=== PATIENT | male | born 1955 | race Caucasian/White ===

== ENCOUNTER → 2016-11-25 | Outpatient (CLI) | payer BC ==
[2016-11-25 18:25] LABS: HEMATOCRIT 43.5 % (42-52); MEAN CELL VOLUME 88.1 fL (80-100); MEAN CORPUSCULAR HGB CONC 36.3 g/dl (32-36); MEAN PLATELET VOLUME 12.9 fL (7.4-10.4); PLATELET COUNT 196 K/uL (130-400); RED BLOOD COUNT 4.94 M/uL (4.7-6.1); WHITE BLOOD COUNT 19.61 K/uL (4.8-10.8)
[2016-11-25 18:34] LABS: ALT/SGPT 22 U/L (12-78); AMYLASE 53 U/L (25-115); AST/SGOT 20 U/L (15-37); BLOOD UREA NITROGEN 23 mg/dl (7-18); BUN/CREATININE RATIO 23.6 (10-20); CALCIUM 10.6 mg/dl (8.5-10.1); CARBON DIOXIDE 23 mmol/L (21-32); CHLORIDE 103 mmol/L (98-107); CREATININE 0.96 mg/dl (0.60-1.40); GLUCOSE 145 mg/dl (70-99); POTASSIUM 4.7 mmol/L (3.5-5.1); SODIUM 137 mmol/L (136-145)
[2016-11-25 18:37] LABS: ALB/GLOB RATIO 1.3 (0.9-2); ALKALINE PHOSPHATASE 82 U/L (45-117)
[2016-11-25 19:11] LABS: BASO % 0.1 %; BASO ABS # 0.01 K/uL (0-0.2); COMPLETE YES; IG% 0.2 %; LYMPH % 5.7 %; LYMPH ABS # 1.11 K/uL (1.2-3.4)
== END | disposition home or self-care (01) ==
LOC: C.LABSPEC 10:53
PROVIDERS: ATTEND Family Medicine
DX: R10.84 Generalized abdominal pain (principal)

== ENCOUNTER 2021-07-04 12:30 | Observation (INO) ==
[2021-07-04 13:17] LABS: Basophils # (auto) 0.04 K/uL (0-0.2); Basophils % (auto) 0.5 %; Eosinophils # (auto) 0.04 K/uL (0-0.5); Eosinophils % (auto) 0.5 %; Hematocrit (blood only) 38.3 % (42-52); Hemoglobin 13.4 g/dL (14.0-18.0); Immature Granulocytes # (auto) 0.01 K/uL (0.00-0.02); Immature Granulocytes % (auto) 0.1 %; Lymphocytes # (auto) 1.19 K/uL (1.2-3.4); Lymphocytes % (auto) 16.1 %; Mean Corpuscular Hemoglobin 31.2 pg (25-34); Mean Corpuscular Volume 89.1 fL (80-100); Monocytes # (auto) 0.41 K/uL (0.11-0.59); Monocytes % (auto) 5.5 %; Neutrophils # (auto) 5.71 K/uL (1.4-6.5); Neutrophils % (auto) 77.3 %; Platelet Count 190 K/uL (130-400); RDW Coefficient of Variation 13.1 % (11.5-14.5); RDW Standard Deviation 42.5 fL (36.4-46.3)
[2021-07-04 13:34] LABS: BUN Creatinine Ratio 9.6 (10-20); Calcium 9.6 mg/dl (8.5-10.1); Creatinine Clr Calc Pharmacy 73.7 ml/min; Est GFR (African American) 93.4 ml/min; Est GFR (Non-African American) 80.6 ml/min; Potassium 3.8 mmol/L (3.5-5.1)
[2021-07-04 13:36] LABS: Albumin Globulin Ratio 1.3 (0.9-2); Bilirubin,Total 0.8 mg/dl (0.2-1); Globulin 3.2 gm/dl (2.5-4.0); Total Protein 7.2 gm/dl (6.4-8.2)
--- NOTE | 2021-07-04 17:01 | Emergency Department Note ---
Impression & Plan Difficulty swallowing, SOB (shortness of breath), Weight loss ED Provider Note NAME: PIPE STANTON AGE: 66 SEX: M : 1955 ARRIVES VIA: Walk-In INFORMANT: [Patient][family] ED PROVIDER(S): [Jose Ram MD] CHIEF COMPLAINT: Illness HISTORY OF PRESENT ILLNESS: The patient is a 66-year-old male who states that for at least 1 week, he has noticed some discomfort in the area of his esophagus near the sternal notch when he swallows. He cannot swallow larger objects including larger pills, he gags. He has lost a bit of weight. He also feels short of breath as if he cannot inhale deeply like he could before. There has been no fever, no increased cough. His thinks his voice is more raspy. The patient went to an outside hospital and had his heart tested. Everything checked out okay. He has an appointment to see GI on August 06 but, was not sure he could wait that long as he is having more and more difficulty each day. The pain to swallow is mild in severity, it is more of a discomfort and feeling as if something may be caught in the esophagus than real pain. He feels sometimes like here is a rope tightening on his neck. The patient does have reflux and is noticing more reflux lately. He takes omeprazole daily. REVIEW OF SYSTEMS: See HPI for pertinent positives and negatives. A total of ten systems were reviewed and were otherwise negative. PMHx/PSHx: See Below SOCIAL HISTORY: See Below. PHYSICAL EXAM: GENERAL: Patient is in no acute distress. HEENT: No acute trauma, normocephalic atraumatic, mucous membranes moist, no nasal congestion, no scleral icterus. NECK: No stridor, no adenopathy, no meningismus, trachea is midline. No real discomfort to move the trachea side to side. LUNGS: Clear to auscultation bilaterally but diminished bilaterally, no wheeze, no rhonchi, breath sounds equal. HEART: Without murmurs gallops or rubs, regular rate and rhythm. ABDOMEN: Soft, nontender, bowel sounds positive, no hernias, no peritonitis. EXTREMITIES: No cyanosis or edema, full range of motion of all the joints without pain or difficulty, no signs for acute trauma. NEUROLOGIC: Oriented x 3, no acute motor or sensory deficits, no focal weakness. SKIN: No rash, no jaundice, no diaphoresis. DIFFERENTIAL DIAGNOSIS: Esophageal narrowing, esophageal stricture, esophageal mass, thyroid mass, mediastinal mass, malignancy, esophagitis, cardiac ischemia, pneumonia, among others. EMERGENCY DEPARTMENT COURSE/PROCEDURES: ECG: Indication was upper chest pain. The ECG shows a sinus bradycardia with a rate of 59. There is no ST elevation, no PVCs. The QTc is 419. Continuous Cardiac Monitoring: An order was placed for continuous cardiac monitoring. The monitor shows a rate of 79 with normal sinus rhythm. MEDICAL DECISION MAKING: There is no leukocytosis. A mild anemia was noted. There was a normal platelet count. No significant electrolyte abnormality with the exception of a slightly low magnesium at 1.7. There was no kidney failure. ECG shows a sinus bradycardia, no acute ischemia. Cardiac enzyme testing x1 is not consistent with acute cardiac injury. There was no liver enzyme elevation. TSH showed the thyroid to be functioning normally. Covid testing returned negative. Chest CT did not show any mass in the mediastinum, there was no obstruction in the esophagus. The patient presents with difficulty swallowing. Work-up here is unrevealing. I discussed the case with GI. The patient is to be hospitalized for endoscopy in the [facility]. The patient is to be n.p.o. at midnight. I talked to the patient about his findings, he was in agreement with the hospital stay. I did speak with case management, the on-call hospitalist was consulted. Past Med/Surg History Medical History COPD with emphysema Surgical History H/O wrist surgery Family History Brother Heart disease Father Lung cancer, Onset Age: 82 smoker COPD (chronic obstructive pulmonary disease) Sister Breast cancer, Onset Age: 60 survived Other Cancer Emphysema, unspecified Denies family history of Tuberculosis Diabetes Allergies Lung disease Asthma Social History Smoking Status: Former smoker Tobacco Type: Cigarettes Age Started Using Tobacco: 20; Age Quit Using Tobacco: 60; packs per day: 0.75; Years Smoked: 20; Cigarettes Per Day: 15; Hx Alcohol Use: No Hx Substance Use: No Preferred Language: Bangladeshi Communication Ability: Effective Cryptologic Support Specialist Required: No Beliefs That Will Affect Care: None marital status: Current Living Situation: Spouse current occupational status: employed current occupation: [employer] Other Information That Helps Us Care for You: No Feels Safe at Home: Yes Safety Concerns: Feels Safe At This Time Assistive Devices: None Allergies Allergies Allergy/AdvReac Type Severity Reaction Status Date / Time etodolac Allergy Severe throat Verified 07/05/21 11:02 swelling meloxicam AdvReac Intermediate throat Verified 07/05/21 11:02 irritation Home Meds Home Medications Medication Instructions Recorded Confirmed cyanocobalamin (vitamin B-12) 1,000 mcg PO QAM 07/04/21 07/04/21 1,000 mcg tablet (Vitamin B-12) docusate sodium 100 mg tablet 100 mg PO QAM 07/04/21 07/04/21 multivitamin 1 tab PO QAM 07/04/21 07/04/21 omeprazole 20 mg capsule,delayed 20 mg PO QAM 07/04/21 07/04/21 release Previous Rx's Medication Instructions Recorded albuterol sulfate 90 mcg/actuation 2 puff INHALATION Q6H PRN #18 g 08/08/20 aerosol inhaler Results & Data (ED) Vital Signs Vital Signs - 24 hr 07/04/21 16:25 07/04/21 16:30 07/04/21 17:00 Pulse Rate 61 63 58 L Pulse Rate from SpO2 Sensor 62 63 60 Respiratory Rate 15 18 18 Blood Pressure 117/73 110/66 121/77 Blood Pressure Mean 87 80 91 Pulse Oximetry 99 99 100 07/04/21 17:30 07/04/21 18:00 07/04/21 18:30 Pulse Rate 61 Pulse Rate from SpO2 Sensor 70 64 61 Respiratory Rate 18 15 16 Blood Pressure 118/72 106/72 119/72 Blood Pressure Mean 87 83 87 Pulse Oximetry 100 99 98 07/04/21 19:00 07/04/21 19:40 Pulse Rate 75 67 Pulse Rate from SpO2 Sensor 72 67 Respiratory Rate 16 15 Blood Pressure 104/67 Blood Pressure Mean 79 Pulse Oximetry 99 99 Home Medications Current Medication List: was personally reviewed by me Laboratory Data Attestation: I reviewed the patient's lab results. Result diagrams: 07/05/21 08:57 07/05/21 08:57 Lab Results 07/04/21 07/04/21 07/04/21 Range/Units 13:02 13:02 17:13 WBC 7.40 (4.8-10.8) K/uL RBC 4.30 L (4.7-6.1) M/uL Hgb 13.4 L (14.0-18.0) g/dL Hct 38.3 L (42-52) % MCV 89.1 (80-100) fL MCH 31.2 (25-34) pg MCHC 35.0 (32-36) g/dL RDW Std Deviation 42.5 (36.4-46.3) fL RDW Coeff of Ted 13.1 (11.5-14.5) % Plt Count 190 (130-400) K/uL MPV 12.0 H (7.4-10.4) fL Immature Gran % (Auto) 0.1 % Neut % (Auto) 77.3 % Lymph % (Auto) 16.1 % Clay % (Auto) 5.5 % Eos % (Auto) 0.5 % Baso % (Auto) 0.5 % Neut # (Auto) 5.71 (1.4-6.5) K/uL Lymph # (Auto) 1.19 L (1.2-3.4) K/uL Clay # (Auto) 0.41 (0.11-0.59) K/uL Eos # (Auto) 0.04 (0-0.5) K/uL Baso # (Auto) 0.04 (0-0.2) K/uL Immature Gran # (Auto) 0.01 (0.00-0.02) K/uL Sodium 137 (136-145) mmol/L Potassium 3.8 (3.5-5.1) mmol/L Chloride 105 (98-107) mmol/L Carbon Dioxide 25 (21-32) mmol/L Anion Gap 7.0 (3-11) BUN 9 (7-18) mg/dl Creatinine 0.98 (0.6-1.4) mg/dl Est Cr Clr Drug Dosing 73.7 ml/min Est GFR ( Amer) 93.4 ml/min Est GFR (Non-Af Amer) 80.6 ml/min BUN/Creatinine Ratio 9.6 L (10-20) Glucose 112 H (70-99) mg/dl Calcium 9.6 (8.5-10.1) mg/dl Magnesium (1.8-2.4) mg/dl Total Bilirubin 0.8 (0.2-1) mg/dl AST 20 (15-37) U/L ALT 29 (12-78) U/L Alkaline Phosphatase 71 (45-117) U/L Troponin I < 0.015 (0-0.045) ng/ml Total Protein 7.2 (6.4-8.2) gm/dl Albumin 4.0 (3.4-5.0) gm/dl Globulin 3.2 (2.5-4.0) gm/dl Albumin/Globulin Ratio 1.3 (0.9-2) TSH 1.740 (0.300-4.500) uIu/ml COVID-19 Eval Order SARS-CoV-2 (PCR) (Negative) 07/04/21 07/04/21 07/04/21 Range/Units 17:13 18:13 18:13 WBC (4.8-10.8) K/uL RBC (4.7-6.1) M/uL Hgb (14.0-18.0) g/dL Hct (42-52) % MCV (80-100) fL MCH (25-34) pg MCHC (32-36) g/dL RDW Std Deviation (36.4-46.3) fL RDW Coeff of Ted (11.5-14.5) % Plt Count (130-400) K/uL MPV (7.4-10.4) fL Immature Gran % (Auto) % Neut % (Auto) % Lymph % (Auto) % Clay % (Auto) % Eos % (Auto) % Baso % (Auto) % Neut # (Auto) (1.4-6.5) K/uL Lymph # (Auto) (1.2-3.4) K/uL Clay # (Auto) (0.11-0.59) K/uL Eos # (Auto) (0-0.5) K/uL Baso # (Auto) (0-0.2) K/uL Immature Gran # (Auto) (0.00-0.02) K/uL Sodium (136-145) mmol/L Potassium (3.5-5.1) mmol/L Chloride (98-107) mmol/L Carbon Dioxide (21-32) mmol/L Anion Gap (3-11) BUN (7-18) mg/dl Creatinine (0.6-1.4) mg/dl Est Cr Clr Drug Dosing ml/min Est GFR ( Amer) ml/min Est GFR (Non-Af Amer) ml/min BUN/Creatinine Ratio (10-20) Glucose (70-99) mg/dl Calcium (8.5-10.1) mg/dl Magnesium 1.7 L (1.8-2.4) mg/dl Total Bilirubin (0.2-1) mg/dl AST (15-37) U/L ALT (12-78) U/L Alkaline Phosphatase (45-117) U/L Troponin I (0-0.045) ng/ml Total Protein (6.4-8.2) gm/dl Albumin (3.4-5.0) gm/dl Globulin (2.5-4.0) gm/dl Albumin/Globulin Ratio (0.9-2) TSH (0.300-4.500) uIu/ml COVID-19 Eval Order Covid19 at [facility] [place] SARS-CoV-2 (PCR) NEGATIVE (Negative) Administered Medications Pantoprazole Sodium 40 mg/ (Syringe) 10 mls @ 5 mls/min IV DAILY@1100 FRANCISCO Stop: 08/04/21 10:59 Last Admin: 07/05/21 12:53 Dose: 5 mls/min Documented by: [id number] Discontinued Medications Sodium Chloride (Nss 1000ml) 1,000 mls @ 100 mls/hr IV .Q10H FRANCISCO Stop: 07/05/21 07:41 Last Infusion: 07/05/21 08:12 Dose: 0 mls/hr Documented by: [id number] Admin: 07/04/21 22:12 Dose: 100 mls/hr Documented by: [id number] Magnesium Sulfate/Dextrose (Magnesium Sulfate / D5w) 1 gm in 100 mls @ 50 mls/hr IV Q2H FRANCISCO Stop: 07/05/21 12:29 Last Admin: 07/05/21 13:43 Dose: 50 mls/hr Documented by: [id number] Infusion: 07/05/21 13:41 Dose: 50 mls/hr Documented by: [id number] Infusion: 07/05/21 12:50 Dose: 50 mls/hr Documented by: [id number] Infusion: 07/05/21 10:41 Dose: 0 mls/hr Documented by: [id number] Admin: 07/05/21 09:31 Dose: 50 mls/hr Documented by: [id number] Ioversol (Optiray 320 100ml) 94 ml IV ONCE ONE Stop: 07/04/21 17:20 Last Admin: 07/04/21 17:19 Dose: 1 ml Documented by: [id number] Lidocaine HCl (Lidocaine 2% 2 Ml Vial/Amp(20mg/Ml)) Confirm Administered Dose 4 ml INFIL .STK-MED ONE Stop: 07/05/21 11:22 Last Admin: 07/05/21 12:54 Dose: Not Given Documented by: [id number] Propofol (Propofol Iv Emulsion 10 Mg/Ml 20 Ml Vial) Confirm Administered Dose 400 mg IV .STK-MED ONE Stop: 07/05/21 11:22 Last Admin: 07/05/21 12:54 Dose: Not Given Documented by: [id number] Imaging Data Radiologist's Impression: CHEST CT WITH CONTRAST CT DOSE: 263.26 mGy.cm HISTORY: Acute shortness of breath with dysphagia and weight loss sob, hard to swallow, wt loss TECHNIQUE: Multiaxial CT images of the chest were performed following the IV administration of 94 cc of Optiray. Oral contrast was also used to assess the esophagus. A dose lowering technique was utilized adhering to the principles of ALARA. COMPARISON: Chest CT from outside hospital 07/30/2020 (images only without report). FINDINGS: Unremarkable thyroid. No adenopathy. Heart is normal in size without pericardial effusion. Moderate coronary artery calcifications. No thoracic aortic aneurysm. Patency of the imaged great vessels. The opacified pulmonary artery appears unremarkable. Mild emphysema. Tracheobronchial secretions with bronchial wall thickening suggestive of bronchitis. Respiratory motion artifact and evaluation of the lung parenchyma. Biapical pleural-parenchymal scarring. Pleural thickening of the right lung apex measuring up to approximately 4.7 cm transversely on image 65 series 5 appears stable from the 07/30/2020 exam. Calcified granulomata with scattered noncalcified subcentimeter pulmonary nodules of the right lung apex redemonstrated. The largest noncalcified pulmonary nodule measures up to approximately 4 mm. No pneumothorax, overt pulmonary edema or lobar airspace consolidation. There is no pneumoperitoneum. Postoperative changes of the stomach. Cholecystectomy. No focal abnormality of the esophagus identified. No esophageal mass or contrast extravasation. Degenerative changes of the shoulders and spine. No acute fracture or suspicious bone lesion. Midthoracic dextroscoliosis. IMPRESSION: 1. Emphysema without acute intrathoracic abnormality. 2. No pleural effusion or airspace consolidation to suggest pneumonia. 3. Unremarkable appearance of the esophagus. 4. Unchanged pleural parenchymal scarring with 4.7 cm right apical opacity, stable from 07/30/2020 and also likely related to fibrosis. 5. Unchanged low suspicion calcified granulomata with noncalcified right upper lobe pulmonary nodules measuring up to 4 mm. Discharge Plan Visit Data Chief Complaint: Illness Stated Complaint: TROUBLE SWALLOWING ED Provider: Jose Ram Discharge Problem: Difficulty swallowing, SOB (shortness of breath), Weight loss Patient Disposition: Admitted As Inpatient Condition: Good Discharge Instructions Interventions: ED Discharge Assessment Last Done: 07/04/21 21:07
[2021-07-04] MEDS ORDERED: OPTIRAY 320 100ml IV ONE (17:19)
--- NOTE | 2021-07-04 17:42 | CT Scan Report ---
CHEST CT WITH CONTRAST CT DOSE: 263.26 mGy.cm HISTORY: Acute shortness of breath with dysphagia and weight loss sob, hard to swallow, wt loss TECHNIQUE: Multiaxial CT images of the chest were performed following the IV administration of 94 cc of Optiray. Oral contrast was also used to assess the esophagus. A dose lowering technique was utiliz ed adhering to the principles of ALARA. COMPARISON: Chest CT from outside hospital 07/30/2020 (images only without report). FINDINGS: Unremarkable thyroid. No adenopathy. Heart is normal in size without pericardial effusion. Moderate coronary artery calcifications. No thoracic aortic aneurysm. Patency of the imaged great ves sels. The opacified pulmonary artery appears unremarkable. Mild emphysema. Tracheobronchial secretions with bronchial wall thickening suggestive of bronchitis. Respiratory motion artifact and evaluation of the lung parenchyma. Biapical pleural-parenchymal scarr ing. Pleural thickening of the right lung apex measuring up to approximately 4.7 cm transversely on i mage 65 series 5 appears stable from the 07/30/2020 exam. Calcified granulomata with scattered noncalc ified subcentimeter pulmonary nodules of the right lung apex redemonstrated. The largest noncalcified pulmonary nodule measures up to approximately 4 mm. No pneumothorax, overt pulmonary edema or lobar airspace consolidation. There is no pneumoperitoneum. Postoperative changes of the stomach. Cholecystectomy. No focal abnorma lity of the esophagus identified. No esophageal mass or contrast extravasation. Degenerative changes of the shoulders and spine. No acute fracture or suspicious bone lesion. Midthoracic dextroscoliosis. IMPRESSION: 1. Emphysema without acute intrathoracic abnormality. 2. No pleural effusion or airspace consolidation to suggest pneumonia. 3. Unremarkable appearance of the esophagus. 4. Unchanged pleural parenchymal scarring with 4.7 cm right apical opacity, stable from 07/30/2020 and also likely related to fibrosis. 5. Unchanged low suspicion calcified granulomata with noncalcified right upper lobe pulmonary nodules measuring up to 4 mm. ACT 112: Negative or not required by law. Electronically signed by: Marcos Kennedy M.D. 07/04/2021 5:40 PM
[2021-07-04 17:56] LABS: Troponin I < 0.015 ng/ml (0-0.045)
--- NOTE | 2021-07-04 19:45 | History & Physical Report ---
Date of Service July 04, 2021 Assessment & Plan (1) Dysphagia: Plan: 66yo male presenting with 2 months of throat fullness, dysphagia, odynophagia and hoarseness. Patient denies melena/hematochezia/hematemesis. He does have a normochromic normocytic anemia with Hgb = 13.4, HCT equal 38.3 which is a slight decrease from prior lab values in July 2020. Work-up in the ER largely unremarkable Observation to medical floor Keep n.p.o. after midnight GI consultation appreciated. Plan for EGD in the morning Protonix 40 mg IV daily (2) COPD with emphysema: Plan: Patient denies cough, shortness of breath, wheeze Albuterol HFA as needed Plan: F/E/N -normal saline at 100 mL/h x 1 L, electrolytes within normal limits, n.p.o. after midnight ProphylaxisSCDs to bilateral lower extremities for DVT prophylaxis Codefull per discussion with patient Dispositionobservation to medical History of Present Illness Chief Complaint: difficulty swallowing Primary Care Provider: Julio Osman MD Ketan Gamez is a 66yo male with history Emphysema/COPD presenting with 2 months of throat discomfort. Patient reports his throat began feeling "weird" approximately 2 months ago - fullness, scratchy and tight. He complains of pain and difficulty with swallowing as well as the sensation of food getting stuck in the epigastric region. He sometimes experiences a bitter fluid in his mouth as well as globus sensation and hoarseness of voice. Two days ago he ate breakfast then had vomiting of undigested food approximately 15-20 minutes later as well as black liquid. He otherwise denies nausea, vomiting. No diarrhea, constipation. No melena/hematochezia or hematemesis. Patient had a partial gastrectomy performed at the age of 15 for a stomach ulcer. He states that he had approximately 90% of his stomach removed. Since then he has had intermittent heart burn over the years. He typically takes Omeprazole and TUMS PRN with relief of symptoms. He has been taking Omeprazole for the last month with no improvement in the above symptoms. Patient was seen at [facility] approximately 1 week ago and had a negative cardiac workup. He was discharged home. Allergies Allergy/AdvReac Type Severity Reaction Status Date / Time etodolac Allergy Severe throat Unverified 07/04/21 16:53 swelling meloxicam AdvReac Intermediate throat Unverified 07/04/21 16:54 irritation Home Medications Medication Instructions Recorded Confirmed Type albuterol sulfate 90 mcg/actuation 2 puff INHALATION Q6H PRN #18 g 08/08/20 07/04/21 Rx aerosol inhaler cyanocobalamin (vitamin B-12) 1,000 mcg PO QAM 07/04/21 07/04/21 History 1,000 mcg tablet (Vitamin B-12) docusate sodium 100 mg tablet 100 mg PO QAM 07/04/21 07/04/21 History multivitamin 1 tab PO QAM 07/04/21 07/04/21 History omeprazole 20 mg capsule,delayed 20 mg PO QAM 07/04/21 07/04/21 History release Past Med/Surg History Medical History (Updated 07/05/21 @ 00:13 by Irma Shea DO) COPD with emphysema Surgical History H/O wrist surgery Family History Brother Heart disease Father Lung cancer, Onset Age: 82 smoker COPD (chronic obstructive pulmonary disease) Sister Breast cancer, Onset Age: 60 survived Other Cancer Emphysema, unspecified Denies family history of Tuberculosis Diabetes Allergies Lung disease Asthma Social History Smoking Status: Former smoker Tobacco Type: Cigarettes Age Started Using Tobacco: 20; Age Quit Using Tobacco: 60; packs per day: 0.75; Years Smoked: 20; Cigarettes Per Day: 15; Hx Alcohol Use: No Hx Substance Use: No Preferred Language: Irish Communication Ability: Effective Fund Manager Required: No Beliefs That Will Affect Care: None marital status: Current Living Situation: Spouse current occupational status: employed current occupation: [employer] Other Information That Helps Us Care for You: No Feels Safe at Home: Yes Safety Concerns: Feels Safe At This Time Assistive Devices: Denture - Upper and Glasses Review of Systems Review of Systems: All systems reviewed & are unremarkable except as noted in HPI & below + Weight loss - 4-5 pounds over the last 2 months Decreased appetite Decreased PO intake Indigestion Physical Exam Physical Exam: General: patient resting comfortably, NAD, non-toxic in appearance, AA&O x 4 Skin: warm, dry, intact, no rashes or lesions HEENT: NC/AT, PERRL, EOMI, anicteric sclera, conjunctiva without injection, external ear normal to inspection and nontender, nares patent, moist mucus membranes, dentition intact, no oropharyngeal lesions, posterior pharynx with mild erythema, no exudates, neck supple, trachea midline, no LAD, no thyromegaly, no JVD Heart: +S1/S2, regular, no m/r/g Lungs: equal air entry bilaterally, no rales/rhonchi/wheezes Abd: +BS, soft, NT/ND, no masses/organomegaly/ascites, no epigastric tenderness Ext: warm, 2+ pulses in UE/LE bilaterally, no clubbing/cyanosis or edema Neuro: nonfocal, patient AA&O x 4, speech intact, no facial droop, moving all extremities on command with equal strength 5/5 Results & Data Results & Data ([facility]) Vital Signs (Past 12 Hours) Vital Signs Temp Pulse Resp BP Pulse Ox 07/04/21 18:30 61 16 119/72 98 07/04/21 18:00 15 106/72 99 07/04/21 17:30 18 118/72 100 07/04/21 17:00 58 L 18 121/77 100 07/04/21 16:30 63 18 110/66 99 07/04/21 16:25 61 15 117/73 99 07/04/21 12:32 36.8 C 79 18 115/71 100 Laboratory Results Laboratory Results WBC 7.40 K/uL (4.8-10.8) 07/04/21 13:02 RBC 4.30 M/uL (4.7-6.1) L 07/04/21 13:02 Hgb 13.4 g/dL (14.0-18.0) L 07/04/21 13:02 Hct 38.3 % (42-52) L 07/04/21 13:02 MCV 89.1 fL (80-100) 07/04/21 13:02 MCH 31.2 pg (25-34) 07/04/21 13:02 MCHC 35.0 g/dL (32-36) 07/04/21 13:02 RDW Std Deviation 42.5 fL (36.4-46.3) 07/04/21 13:02 RDW Coeff of Ted 13.1 % (11.5-14.5) 07/04/21 13:02 Plt Count 190 K/uL (130-400) 07/04/21 13:02 MPV 12.0 fL (7.4-10.4) H 07/04/21 13:02 Immature Gran % (Auto) 0.1 % 07/04/21 13:02 Neut % (Auto) 77.3 % 07/04/21 13:02 Lymph % (Auto) 16.1 % 07/04/21 13:02 [place] % (Auto) 5.5 % 07/04/21 13:02 Eos % (Auto) 0.5 % 07/04/21 13:02 Baso % (Auto) 0.5 % 07/04/21 13:02 Neut # (Auto) 5.71 K/uL (1.4-6.5) 07/04/21 13:02 Lymph # (Auto) 1.19 K/uL (1.2-3.4) L 07/04/21 13:02 [place] # (Auto) 0.41 K/uL (0.11-0.59) 07/04/21 13:02 Eos # (Auto) 0.04 K/uL (0-0.5) 07/04/21 13:02 Baso # (Auto) 0.04 K/uL (0-0.2) 07/04/21 13:02 Immature Gran # (Auto) 0.01 K/uL (0.00-0.02) 07/04/21 13:02 Sodium 137 mmol/L (136-145) 07/04/21 13:02 Potassium 3.8 mmol/L (3.5-5.1) 07/04/21 13:02 Chloride 105 mmol/L (98-107) 07/04/21 13:02 Carbon Dioxide 25 mmol/L (21-32) 07/04/21 13:02 Anion Gap 7.0 (3-11) 07/04/21 13:02 BUN 9 mg/dl (7-18) 07/04/21 13:02 Creatinine 0.98 mg/dl (0.6-1.4) 07/04/21 13:02 Est Cr Clr Drug Dosing 73.7 ml/min 07/04/21 13:02 Est GFR ( Amer) 93.4 ml/min 07/04/21 13:02 Est GFR (Non-Af Amer) 80.6 ml/min 07/04/21 13:02 BUN/Creatinine Ratio 9.6 (10-20) L 07/04/21 13:02 Glucose 112 mg/dl (70-99) H 07/04/21 13:02 Calcium 9.6 mg/dl (8.5-10.1) 07/04/21 13:02 Magnesium 1.7 mg/dl (1.8-2.4) L 07/04/21 17:13 Total Bilirubin 0.8 mg/dl (0.2-1) 07/04/21 13:02 AST 20 U/L (15-37) 07/04/21 13:02 ALT 29 U/L (12-78) 07/04/21 13:02 Alkaline Phosphatase 71 U/L (45-117) 07/04/21 13:02 Troponin I < 0.015 ng/ml (0-0.045) 07/04/21 17:13 Total Protein 7.2 gm/dl (6.4-8.2) 07/04/21 13:02 Albumin 4.0 gm/dl (3.4-5.0) 07/04/21 13:02 Globulin 3.2 gm/dl (2.5-4.0) 07/04/21 13:02 Albumin/Globulin Ratio 1.3 (0.9-2) 07/04/21 13:02 TSH 1.740 uIu/ml (0.300-4.500) 07/04/21 17:13 COVID-19 Eval Order Covid19 at [facility] 07/04/21 18:13 SARS-CoV-2 (PCR) NEGATIVE (Negative) 07/04/21 18:[address] 07/04/21 16:[address] WITH CONTRAST CT DOSE: 263.26 mGy.cm HISTORY: Acute shortness of breath with dysphagia and weight loss sob, hard to swallow, wt loss TECHNIQUE: Multiaxial CT images of the chest were performed following the IV administration of 94 cc of Optiray. Oral contrast was also used to assess the esophagus. A dose lowering technique was utilized adhering to the principles of ALARA. COMPARISON: Chest CT from outside hospital 07/30/2020 (images only without report). FINDINGS: Unremarkable thyroid. No adenopathy. Heart is normal in size without pericardial effusion. Moderate coronary artery calcifications. No thoracic aortic aneurysm. Patency of the imaged great vessels. The opacified pulmonary artery appears unremarkable. Mild emphysema. Tracheobronchial secretions with bronchial wall thickening suggestive of bronchitis. Respiratory motion artifact and evaluation of the lung parenchyma. Biapical pleural-parenchymal scarring. Pleural thickening of the right lung apex measuring up to approximately 4.7 cm transversely on image 65 series 5 appears stable from the 07/30/2020 exam. Calcified granulomata with scattered noncalcified subcentimeter pulmonary nodules of the right lung apex redemonstrated. The largest noncalcified pulmonary nodule measures up to approximately 4 mm. No pneumothorax, overt pulmonary edema or lobar airspace consolidation. There is no pneumoperitoneum. Postoperative changes of the stomach. Cholecyste ctomy. No focal abnormality of the esophagus identified. No esophageal mass or contrast extravasation. Degenerative changes of the shoulders and spine. No acute fracture or suspicious bone lesion. Midthoracic dextroscoliosis. IMPRESSION: 1. Emphysema without acute intrathoracic abnormality. 2. No pleural effusion or airspace consolidation to suggest pneumonia. 3. Unremarkable appearance of the esophagus. 4. Unchanged pleural parenchymal scarring with 4.7 cm right apical opacity, stable from 07/30/2020 and also likely related to fibrosis. 5. Unchanged low suspicion calcified granulomata with noncalcified right upper lobe pulmonary nodules measuring up to 4 mm. ACT 112: Negative or not required by law. Electronically signed by: Marcos Kennedy M.D. 07/04/2021 5:40 PM ECG Additional Comments: EKG with SB at 59bpm, normal axis, RD=335, QRS=98, OHyd=640, no acute ischemic changes Code Status & VTE Plan VTE Prophylaxis Plan VTE Prophylaxis will be ordered: Yes PG Care Time/CCT Total # of Minutes Spent Total Time Spent with Patient: Total time spent is greater than 50% in coordination of care (as documented) at patient's floor/unit and/or counseling patient: Coding Level of Care Code INT OBSERVATION CARE 50M LVL 2 Diagnoses COPD with emphysema J43.9 Dysphagia R13.10
[2021-07-04] MEDS ORDERED: SODIUM CHLORIDE 0.9% 1000ML 1,000 ML IV SCH (21:42)
[2021-07-04] MEDS ORDERED: ACETAMINOPHEN 325 MG TAB PO PRN (21:42)
[2021-07-04] MEDS ORDERED: ALBUTEROL HFA 8 GM INHALER INH PRN (21:42)
[2021-07-04] MEDS ORDERED: ONDANSETRON INJ 2 MG/ML 2 ML VIAL IV PRN (21:42)
--- NOTE | 2021-07-05 08:45 | Hospitalist Progress Note ---
Date of Service July 05, 2021 Assessment & Plan (1) Dysphagia: Plan: 66yo male presenting with 2 months of throat fullness, dysphagia, odynophagia and hoarseness. Patient denies melena/hematochezia/hematemesis. He does have a normochromic normocytic anemia with Hgb = 13.4, HCT equal 38.3 which is a slight decrease from prior lab values in July 2020. Work-up in the ER largely unremarkable Observation to medical floor Keep n.p.o. after midnight GI consultation appreciated. Plan for EGD in the morning Protonix 40 mg IV daily -awaiting UPPER ENDOSCOPY. (2) COPD with emphysema: Plan: Patient denies cough, shortness of breath, wheeze Albuterol HFA as needed -Patient also has history of COPD. D/W Dr. Rhoades, will need PFT. This will need to wait 4 weeks. Plan: F/E/N -normal saline at 100 mL/h x 1 L, electrolytes within normal limits, n.p.o. after midnight ProphylaxisSCDs to bilateral lower extremities for DVT prophylaxis Codefull per discussion with patient Dispositionobservation to medical Admission and Anticipated Discharge Date Admission Date: July 04, 2021 Subjective Patient reports having worsening dspahiga over the course of the past 2 weeks. He also reports having history of COPD and having intermmittent SOB. He is an ex smoker, follows up with Dr. Rhoades but did not complete the PFT that was ordered last year. Review of Systems Review of Systems: All systems reviewed & are unremarkable except as noted in HPI & below Physical Exam Physical Exam: General: patient resting comfortably, NAD, non-toxic in appearance, AA&O x 4 Skin: warm, dry, intact, no rashes or lesions HEENT: NC/AT, PERRL, EOMI, anicteric sclera, conjunctiva without injection, external ear normal to inspection and nontender, nares patent, moist mucus membranes, dentition intact, no oropharyngeal lesions, posterior pharynx with mild erythema, no exudates, neck supple, trachea midline, no LAD, no thyromegaly, no JVD Heart: +S1/S2, regular, no m/r/g Lungs: equal air entry bilaterally, no rales/rhonchi/wheezes Abd: +BS, soft, NT/ND, no masses/organomegaly/ascites, no epigastric tenderness Ext: warm, 2+ pulses in UE/LE bilaterally, no clubbing/cyanosis or edema Neuro: nonfocal, patient AA&O x 4, speech intact, no facial droop, moving all extremities on command with equal strength 5/5 Results & Data Results & Data ([facility]) Vital Signs (Past 12 Hours) Vital Signs Temp Pulse Pulse Resp BP BP Pulse Ox 07/05/21 07:22 36.5 C 965 H 18 116/73 99 07/04/21 22:32 36.4 C L 72 20 128/74 98 07/04/21 22:14 37.1 C 64 16 110/71 99 07/04/21 21:00 68 23 98 PG Care Time/CCT Total # of Minutes Spent Total Time Spent with Patient: Total time spent is greater than 50% in coordination of care (as documented) at patient's floor/unit and/or counseling patient: Coding Level of Care Code 98755 Subseq Obs Care Lvl 3 Diagnoses Dysphagia R13.10 COPD with emphysema J43.9 Time Spent (min) 35
--- NOTE | 2021-07-05 09:01 | Gastrointestinal Consultation ---
Date of Consultation July 05, 2021 Assessment & Plan (1) Dysphagia: -Keep NPO for EGD today -Protonix 40 mg daily for now, may change pending results of EGD Supervising Physician Co-Signing Physician Notes Proceed with EGD. risks/benefits and procedure discussed with patient, who agrees to proceed History of Present Illness Reason for Consultation: Dysphagia Attending Physician: Conor Escobar History of Present Illness Patient is a 66 yo male with a PMH of COPD who presents with "throat discomfort." He notes that this discomfort began several months ago and notes he has started to notice food getting stuck in his esophagus. He acknowledges what sounds like acid reflux, noting an acidic taste in his mouth. He notes several episodes of vomiting up food. He denies any GI bleeding. He has a history of a partial gastrectomy at age 15 due to a perforated stomach ulcer. He utilizes OTC PPI therapy and Tums as needed. Omeprazole has not helped his symptoms. No pertinent family history. He has been using NSAIDs. He has a 20 year smoking history but quit 8 years ago. Family history unremarkable for GI malignancy. CT of the chest indicated an unremarkable esophagus. Allergies Allergy/AdvReac Type Severity Reaction Status Date / Time etodolac Allergy Severe throat Unverified 07/04/21 16:53 swelling meloxicam AdvReac Intermediate throat Unverified 07/04/21 16:54 irritation Home Medications Medication Instructions Recorded Confirmed Type albuterol sulfate 90 mcg/actuation 2 puff INHALATION Q6H PRN #18 g 08/08/20 07/04/21 Rx aerosol inhaler cyanocobalamin (vitamin B-12) 1,000 mcg PO QAM 07/04/21 07/04/21 History 1,000 mcg tablet (Vitamin B-12) docusate sodium 100 mg tablet 100 mg PO QAM 07/04/21 07/04/21 History multivitamin 1 tab PO QAM 07/04/21 07/04/21 History omeprazole 20 mg capsule,delayed 20 mg PO QAM 07/04/21 07/04/21 History release Patient History Medical History (Updated 07/05/21 @ 00:13 by Irma Shea DO) COPD with emphysema Surgical History H/O wrist surgery Family History Brother Heart disease Father Lung cancer, Onset Age: 82 smoker COPD (chronic obstructive pulmonary disease) Sister Breast cancer, Onset Age: 60 survived Other Cancer Emphysema, unspecified Denies family history of Tuberculosis Diabetes Allergies Lung disease Asthma Social History Smoking Status: Former smoker Tobacco Type: Cigarettes Age Started Using Tobacco: 20; Age Quit Using Tobacco: 60; packs per day: 0.75; Years Smoked: 20; Cigarettes Per Day: 15; Hx Alcohol Use: No Hx Substance Use: No Preferred Language: Rwandan Communication Ability: Effective Electrical Contractor Required: No Beliefs That Will Affect Care: None marital status: Current Living Situation: Spouse current occupational status: employed current occupation: [employer] Other Information That Helps Us Care for You: No Feels Safe at Home: Yes Safety Concerns: Feels Safe At This Time Assistive Devices: Denture - Upper and Glasses Review of Systems Constitutional: no fever and no chills Respiratory: no cough and no dyspnea Cardiovascular: no chest pain Gastrointestinal: no coffee ground emesis, no dysphagia and no melena Integumentary: no problem reported Psychiatric: no problem reported Hematologic / Lymphatic: no unexplained weight loss Physical Exam Constitutional: WD/WN, vitals as above Neck: normal visual inspection Respiratory: normal respiratory effort Cardiovascular: RRR, no murmur, no edema Gastrointestinal (Abdomen): normal bowel sounds, soft, nontender, no hepatosplenomegaly Musculoskeletal: Head/Neck/Chest: normocephalic Psychiatric: Orientation: alert and oriented x 3 Results & Data ([facility]) Vital Signs (Past 12 Hours) Vital Signs Temp Pulse Pulse Resp BP BP Pulse Ox 07/05/21 07:22 36.5 C 965 H 18 116/73 99 07/04/21 22:32 36.4 C L 72 20 128/74 98 07/04/21 22:14 37.1 C 64 16 110/71 99 07/04/21 21:00 68 23 98 PG Care Time/CCT Total # of Minutes Spent Total Time Spent with Patient: Total time spent is greater than 50% in coordination of care (as documented) at patient's floor/unit and/or counseling patient: Coding Level of Care Code 51260 Initial Inpt Care Lvl 3 Diagnoses Dysphagia R13.10
[2021-07-05 09:21] LABS: Hematocrit (blood only) 38.8 % (42-52); Hemoglobin 13.4 g/dL (14.0-18.0); Mean Corpuscular Hemoglobin 31.2 pg (25-34); Mean Corpuscular Hgb Conc 34.5 g/dL (32-36); Mean Corpuscular Volume 90.4 fL (80-100); Mean Platelet Volume 11.7 fL (7.4-10.4); Platelet Count 183 K/uL (130-400); RDW Coefficient of Variation 13.2 % (11.5-14.5); RDW Standard Deviation 43.3 fL (36.4-46.3); Red Blood Count 4.29 M/uL (4.7-6.1); White Blood Count 6.57 K/uL (4.8-10.8)
[2021-07-05] MEDS: MAGNESIUM SULFATE / D5W 1 GM/100 ML BAG IV SCH ×2 (09:31→13:43)
[2021-07-05 09:39] LABS: BUN Creatinine Ratio 9.9 (10-20); Calcium 9.4 mg/dl (8.5-10.1); Creatinine Clr Calc Pharmacy 82.6 ml/min; Est GFR (Non-African American) 90.6 ml/min; Magnesium 2.1 mg/dl (1.8-2.4); Potassium 4.1 mmol/L (3.5-5.1)
[2021-07-05 09:40] LABS: Phosphorus 2.3 mg/dl (2.5-4.9)
[2021-07-05] MEDS ORDERED: LIDOCAINE 2% 2 ML VIAL/AMP(20MG/ML) INFIL ONE (11:21)
[2021-07-05] MEDS ORDERED: PROPOFOL IV EMULSION 10 MG/ML 20 ML VIAL IV ONE (11:21)
--- NOTE | 2021-07-05 11:28 | Anesthesiology Consultation ---
Date of Service July 05, 2021 Assessment & Plan Chart Review Chart Review: Acceptable Risk for Surgery and Patient NOT seen in Pre Admission Testing Consults Requested none ASA ASA4 Proposed Anesthesia Anesthesia Type: MAC Risk / Benefits Reviewed With: PT / POA / Parent / Guardian, Accepts Plan and Informed Consent Obtained Additional Comments: covid test negative History Surgery Operation Date: 07/05/21 16:30 Proposed Procedures p Esophagogastroduodenoscopy Dr. Craig - Chicho Craig MD Height/Weight Height: 6 ft 4 in Weight: 69 kg Allergies Allergy/AdvReac Type Severity Reaction Status Date / Time etodolac Allergy Severe throat Verified 07/05/21 11:02 swelling meloxicam AdvReac Intermediate throat Verified 07/05/21 11:02 irritation Medications Home Medications Medication Instructions Recorded Confirmed Last Taken albuterol sulfate 90 mcg/actuation 2 puff INHALATION Q6H PRN #18 g 08/08/20 07/04/21 07/04/21 aerosol inhaler cyanocobalamin (vitamin B-12) 1,000 mcg PO QAM 07/04/21 07/04/21 07/04/21 1,000 mcg tablet (Vitamin B-12) docusate sodium 100 mg tablet 100 mg PO QAM 07/04/21 07/04/21 07/04/21 multivitamin 1 tab PO QAM 07/04/21 07/04/21 06/27/21 omeprazole 20 mg capsule,delayed 20 mg PO QAM 07/04/21 07/04/21 07/04/21 release Active Medications Generic Name Dose Route Start Last Admin Trade Name Freq PRN Reason Stop Dose Admin Magnesium Sulfate/Dextrose 1 gm in 100 mls @ 50 mls/hr 07/05/21 08:30 07/05/21 10:41 Magnesium Sulfate / D5w IV 07/05/21 12:29 0 mls/hr Q2H FRANCISCO Infusion NPO Date Last Intake of Fluids: 07/04/21 Time Last Intake of Fluids: 21:30 Last Intake of Fluids Comment: in ED Date Last Intake of Solids: 07/04/21 Time Last Intake of Solids: 21:30 Last Intake of Solids Comment: sandwich in ED Past Medical History Medical History COPD with emphysema Exercise / Class Metabolic Activity III < 4 Walking/Shop/Light housework Past Family History Family History Brother Heart disease Father Lung cancer, Onset Age: 82 smoker COPD (chronic obstructive pulmonary disease) Sister Breast cancer, Onset Age: 60 survived Other Cancer Emphysema, unspecified Denies family history of Tuberculosis Diabetes Allergies Lung disease Asthma Past Surgical History Surgical History H/O wrist surgery Past Anesthesia History No Hx of Anesthesia Complications and No Family Hx of Anesthesia Complications History of PONV No Hx of PONV and No Hx of Motion Sickness Social History Smoking Status: Former smoker Smoking cigarettes per day: 15 Hx Alcohol Use: No Hx Substance Use: No Physical Exam Vital Signs Last Vital Signs Temp 37.5 C 07/05/21 10:56 Pulse 67 07/05/21 10:56 Resp 16 07/05/21 10:56 BP 116/75 07/05/21 10:56 Pulse Ox 98 07/05/21 10:56 Constitutional not cachectic ENMT Mouth: + dentition abnormality, + dentures and + edentulous Thyromental Distance: > or= 3.5 Finger Breadths Mallampati Class: II Neck normal visual inspection, trachea midline and + facial hair; neck extension not limited Respiratory normal respiratory effort Auscultation: lungs clear to auscultation bilaterally Cardiovascular Rate/Rhythm: regular rate and regular rhythm Heart Sounds: no murmur Vessels: no carotid bruit Musculoskeletal Spine: normal cervical ROM Neurologic moves all extremities Motor/Sensory: no sensory deficit Psychiatric Orientation: alert and oriented x 3 Testing Laboratory Results 07/05/21 08:57 07/05/21 08:57 Electrocardiogram Date: 07/04/21 Findings: + SB @ (at 60 ;lvh)
[2021-07-05] MEDS ORDERED: ePHEDrine sulfate 50 MG/ML AMP IV PRN (11:29)
[2021-07-05] MEDS ORDERED: ATROPINE SULFATE 0.1 MG/ML 10ML SYR IV PRN (11:29)
--- NOTE | 2021-07-05 12:14 | GI REPORT ---
Patient Name: Ketan Gamez Procedure Date: 07/05/2021 11:23 AM Date of : 1955 Admit Type: Inpatient Age: 66 Gender: Male Attending MD: Chicho Craig MD Procedure: Upper GI endoscopy Providers: Chicho Craig MD Referring MD: Conor Coley M.d. Indications: Dysphagia Medicines: Monitored Anesthesia Care Complications: No immediate complications. Estimated blood loss: None. Estimated Blood Loss: Estimated blood loss: none. Procedure: Pre-Anesthesia Assessment: - Prior Anticoagulants: The patient has taken no previous anticoagulant or antiplatelet agents. - ASA Grade Assessment: II - A patient with mild systemic disease. After obtaining informed consent, the endoscope was passed under direct vision. Throughout the procedure, the patient's blood pressure, pulse, and oxygen saturations were monitored continuously. The Endoscope was introduced through the mouth, and advanced to the second part of duodenum. The upper GI endoscopy was accomplished without difficulty. The patient tolerated the procedure well. Findings: Mucosal changes including longitudinal furrows were found in the upper third of the esophagus and in the middle third of the esophagus. A guidewire was placed and the scope was withdrawn. Dilation was performed with a Savary dilator with mild resistance at 51 Fr. The dilation site was examined following endoscope reinsertion and showed no change. Biopsies were obtained from the proximal and distal esophagus with cold forceps for histology of suspected eosinophilic esophagitis. Estimated blood loss: none. Bilious fluid was found at the anastomosis and remnant stomach. The examined duodenum was normal. Impression: - Esophageal mucosal changes suggestive of eosinophilic esophagitis. Dilated. Biopsied. - Bilious gastric fluid. - Normal examined duodenum. Recommendation: - Return patient to hospital [facility] for ongoing care. - Advance diet as tolerated today. - Await pathology results. -start protonix 40 mg daily, 30 min before breakfast on an empty stomach Chicho Craig MD 07/05/2021 12:14:45 PM This report has been signed electronically. Note Initiated On: 07/05/2021 11:23 AM Number of Addenda: 0 I attest to the content of the Intraoperative Record and orders documented therein, exceptions below {[id number]}
--- NOTE | 2021-07-05 12:35 | Anesthesiology Progress Note ---
Date of Service July 05, 2021 Anesthesia Post Procedure Vital Signs Vital Signs: Temp Pulse Pulse Resp BP BP BP 07/05/21 12:23 64 16 97/59 L 07/05/21 12:13 69 16 86/50 L 07/05/21 10:56 37.5 C 67 16 116/75 07/05/21 07:22 36.5 C 96 H 18 116/73 07/04/21 22:32 36.4 C L 72 20 128/74 07/04/21 22:14 37.1 C 64 16 110/71 07/04/21 21:00 68 23 07/04/21 20:30 76 16 07/04/21 20:00 63 14 07/04/21 19:40 67 15 07/04/21 19:00 75 16 104/67 07/04/21 18:30 61 16 119/72 07/04/21 18:00 15 106/72 07/04/21 17:30 18 118/72 07/04/21 17:00 58 L 18 121/77 07/04/21 16:30 63 18 110/66 07/04/21 16:25 61 15 117/73 Pulse Ox 07/05/21 12:23 98 07/05/21 12:13 94 07/05/21 10:56 98 07/05/21 07:22 99 07/04/21 22:32 98 07/04/21 22:14 99 07/04/21 21:00 98 07/04/21 20:30 100 07/04/21 20:00 99 07/04/21 19:40 99 07/04/21 19:00 99 07/04/21 18:30 98 07/04/21 18:00 99 07/04/21 17:30 100 07/04/21 17:00 100 07/04/21 16:30 99 07/04/21 16:25 99 Pain Intensity Throat: Pain Intensity: 3 Transfer of Care Handoff Completed per policy Notes Mental Status: alert / awake / arousable Patient Amnestic to Procedure: Yes Nausea / Vomiting: adequately controlled Pain: adequately controlled Airway Patency, RR, SpO2: stable & adequate BP & HR: stable & adequate Hydration State: stable & adequate Anesthetic Complications: no major complications apparent
[2021-07-05] MEDS: PANTOprazole 40 MG in SYRINGE 0 ML IV SCH (12:53)
[2021-07-06 08:06] LABS: Hematocrit (blood only) 40.4 % (42-52); Hemoglobin 14.1 g/dL (14.0-18.0); Mean Corpuscular Hemoglobin 31.8 pg (25-34); Mean Corpuscular Hgb Conc 34.9 g/dL (32-36); Mean Platelet Volume 11.9 fL (7.4-10.4); Platelet Count 183 K/uL (130-400); RDW Coefficient of Variation 13.1 % (11.5-14.5); RDW Standard Deviation 43.6 fL (36.4-46.3); Red Blood Count 4.44 M/uL (4.7-6.1); White Blood Count 7.37 K/uL (4.8-10.8)
[2021-07-06 08:34] LABS: BUN Creatinine Ratio 10.2 (10-20); Calcium 9.5 mg/dl (8.5-10.1); Creatinine Clr Calc Pharmacy 81.7 ml/min; Est GFR (African American) 104.5 ml/min; Est GFR (Non-African American) 90.1 ml/min; Potassium 3.7 mmol/L (3.5-5.1)
--- NOTE | 2021-07-06 09:22 | Gastroenterology Progress Note ---
Date of Service July 06, 2021 Assessment & Plan (1) Dysphagia: (2) Esophagitis: Plan: * Tolerating diet. * Continue BID Pantoprazole upon discharge. * Histology pending. * Follow up in the office in 1-2 weeks. Further recommendations will be made at that time pending results of histology. Admission and Anticipated Discharge Date Admission Date: July 04, 2021 Subjective Patient is doing very well status post EGD with dilation yesterday. Tolerating diet. Denies any significant odynophagia. No further dysphagia. No pyrosis or other complaints. Biopsies of the esophagus are pending. Review of Systems Constitutional: no fever and no chills Ear, Nose, Mouth, Throat: as per Subjective / HPI Gastrointestinal: as per Subjective / HPI; no abdominal pain, no nausea and no vomiting Physical Exam Constitutional: WD/WN, vitals as above Eyes: EOM intact bilaterally Respiratory: normal respiratory effort Psychiatric: A+Ox3, euthymic affect Results & Data Results & Data ([facility]) Vital Signs (Past 12 Hours) Vital Signs Temp Pulse Pulse Resp BP Pulse Ox 07/06/21 07:20 36.7 C 57 L 15 112/70 99 07/06/21 02:49 36.5 C 58 L 14 112/68 97 07/05/21 22:23 36.7 C 67 14 105/67 97 PG Care Time/CCT Total # of Minutes Spent Total Time Spent with Patient: Total time spent is greater than 50% in coordination of care (as documented) at patient's floor/unit and/or counseling patient: Coding Level of Care Code 57364 Subseq Hosp Care Lvl 3 Diagnoses Dysphagia R13.10 Esophagitis K20.90
[2021-07-06] MEDS: PANTOprazole 40 MG in SYRINGE 0 ML IV SCH (11:57)
--- NOTE | 2021-07-06 13:00 | Discharge Summary ---
Date of Service July 06, 2021 Admission HPI Per Admitting Provider Ketan Gamez is a 66yo male with history Emphysema/COPD presenting with 2 months of throat discomfort. Patient reports his throat began feeling "weird" approximately 2 months ago - fullness, scratchy and tight. He complains of pain and difficulty with swallowing as well as the sensation of food getting stuck in the epigastric region. He sometimes experiences a bitter fluid in his mouth as well as globus sensation and hoarseness of voice. Two days ago he ate breakfast then had vomiting of undigested food approximately 15-20 minutes later as well as black liquid. He otherwise denies nausea, vomiting. No diarrhea, constipation. No melena/hematochezia or hematemesis. Patient had a partial gastrectomy performed at the age of 15 for a stomach ulcer. He states that he had approximately 90% of his stomach removed. Since then he has had intermittent heart burn over the years. He typically takes Omeprazole and TUMS PRN with relief of symptoms. He has been taking Omeprazole for the last month with no improvement in the above symptoms. Patient was seen at [facility] approximately 1 week ago and had a negative cardiac workup. He was discharged home. Principal Diagnosis Esophagitis Discharge Exam Constitutional WD/WN, vitals as above Eyes PERRL, conjunctivae normal, anicteric sclerae Neck trachea midline, no thyromegaly Respiratory normal respiratory effort, lungs clear to auscultation Cardiovascular RRR, no murmur, no edema Gastrointestinal (Abdomen) normal bowel sounds, soft, nontender, no hepatosplenomegaly Musculoskeletal no cyanosis or clubbing, extremities motor strength 5/5 Skin no rashes, warm and dry Psychiatric A+Ox3, euthymic affect Lymphatic no cervical or axillary lymphadenopathy Discharge Data Allergies Allergy/AdvReac Type Severity Reaction Status Date / Time etodolac Allergy Severe throat Verified 07/05/21 11:02 swelling meloxicam AdvReac Intermediate throat Verified 07/05/21 11:02 irritation Consultations 07/04/21 21:42 Consult Gastroenterology Routine Procedures Performed Operation Date: 07/05/21 16:30 Actual Procedures p EGD Biopsy Dilatation - Chicho Craig MD Ordered Studies 07/04/21 16:52 CT chest diagnostic w con Stat Hospital Course (1) Dysphagia: 66yo male presenting with 2 months of throat fullness, dysphagia, odyno phagia and hoarseness. Patient denies melena/hematochezia/hematemesis. He does have a normochromic normocytic anemia with Hgb = 13.4, HCT equal 38.3 which is a slight decrease from prior lab values in July 2020. Work-up in the ER largely unremarkable Patient admitted under observation to medical floor Patient had an upper endoscopy. -Consulted GI. Upper GI endoscopy findings belowL: Impression: - Esophageal mucosal changes suggestive of eosinophilic esophagitis. Dilated. Biopsied. - Bilious gastric fluid. - Normal examined duodenum. Recommendation: - Return patient to hospital [facility] for ongoing care. - Advance diet as tolerated today. - Await pathology results. -start protonix 40 mg daily, 30 min before breakfast on an empty stomach On day of discharge: GI recommended Continue BID Pantoprazole upon discharge. Follow up in the office in 1-2 weeks. Further recommendations will be made at that time pending results of histology. (2) COPD with emphysema: Patient denies cough, shortness of breath, wheeze Albuterol HFA as needed -Patient also has history of COPD. D/W Dr. Rhoades, will need PFT. This will need to wait 4 weeks after this admission. Will set up followup with PCP. F/E/N -normal saline at 100 mL/h x 1 L, electrolytes within normal limits, n.p.o. after midnight ProphylaxisSCDs to bilateral lower extremities for DVT prophylaxis Codefull per discussion with patient Dispositionobservation to medical Total Time Total Time Spent Total Time Spent (In Minutes): 32 Discharge Plan Discharge Items Patient Disposition: Home - Self-Care Reason For Visit: DYSPHAGIA, ODYNOPHAGIA Discharge Diagnosis: dysphagia Condition on Discharge: Good Activity: Resume your previous activity Non-emergency contact: Primary Care Provider Call non-emergency contact if: you have any medication questions Follow-up/Referrals: Julio Osman MD [Primary Care Provider] - 07/13/21 10:00 am Diet: Regular Addtl Attending Provider Instructions: You came in with difficulty swallowing. You had an upper endoscopy. You are tolerating diet. Will continue BID Pantoprazole upon discharge. Biopsy results are pending. Follow up in the office with gastroenterology in 1-2 weeks. Further recommendations will be made at that time pending results of histology. Will also recommend followup with pulmonary. Pending Studies at Discharge: No Stand-Alone Forms: My [facility] [place], Smoking Cessation Medications and DC Order Prescriptions: New pantoprazole 40 mg tablet,delayed release (DR/EC) 40 mg PO BID Qty: 60 RF: 0 Continued multivitamin Tablet 1 tab PO QAM RF: 0 cyanocobalamin (vitamin B-12) [Vitamin B-12] 1,000 mcg Tablet 1,000 mcg PO QAM RF: 0 docusate sodium 100 mg Tablet 100 mg PO QAM RF: 0 albuterol sulfate 90 mcg/actuation HFA aerosol inhaler 2 puff inhalation Q6H PRN (Reason: Shortness Of Breath Or Wheezing) Qty: 18 RF: 3 Discontinued omeprazole 20 mg capsule,delayed release(DR/EC) 20 mg PO QAM RF: 0 Discharge Orders: Discharge Order (Routine); Ordered 07/06/21 Ordered By: Conor Santiago/Other Patient Handouts: Esophageal Dilation, Upper GI Endoscopy with Biopsy, Treating Dysphagia Admission Data Admit Date/Time: 07/04/21 19:44 Attending Provider: Conor Escobar Admit Provider: Irma Shea Primary Care Provider: Julio Osman Other Providers: Chicho Craig Other Interventions: Discharge Summary Assessment (RN) Last Done: 07/06/21 12:39 Coding Level of Care Code D/C DAY MANAGEMENT >30 MINS Diagnoses Dysphagia R13.10 COPD with emphysema J43.9
--- NOTE | 2021-07-06 16:54 | Electrocardiogram Report ---
Test Reason : Blood Pressure : / mmHG Vent. Rate : 059 BPM Atrial Rate : 059 BPM P-R Int : 164 ms QRS Dur : 098 ms QT Int : 424 ms P-R-T Axes : 086 081 066 degrees QTc Int : 419 ms Sinus bradycardia Minimal voltage criteria for LVH, may be normal variant Borderline ECG When compared with ECG of 27-SEP-2015 15:50, No significant change was found Confirmed by Star Hernández ([id number]) on 07/06/2021 4:53:55 PM Referred By: Julio Osman Confirmed By:Star Hernández
== END 2021-07-06 14:26 | disposition home or self-care (01) ==
LOC: 3N 12:30 → ED 12:30 → SUATTDRO 19:44 → 3N 21:07
DX: K20.90 Esophagitis, unspecified without bleeding; R13.10 Dysphagia, unspecified; Z87.891 Personal history of nicotine dependence; Z20.822 Contact with and (suspected) exposure to COVID-19; J43.9 Emphysema, unspecified; Z79.899 Other long term (current) drug therapy; Z88.8 Allergy status to other drugs, medicaments and biological substances